=== PATIENT | female | born 1960 | race Caucasian/White ===

== ENCOUNTER → 2018-03-20 | Outpatient (CLI) | payer BC ==
--- NOTE | 2018-03-21 09:35 | MM ---
Reason for exam: screening (asymptomatic). Last mammogram was performed 1 year and 8 months ago. History: Patient is postmenopausal. Family history of breast cancer in 2 maternal aunts and breast cancer in maternal cousin at age 58. Benign US left guided VAD of the left breast, April 27, 2011. Physical Findings: A clinical breast exam by your physician is recommended on an annual basis and results should be correlated with mammographic findings. MG Screening Mammo w CAD Bilateral CC and MLO view(s) were taken. Prior study comparison: July 12, 2016, bilateral MG screening mammo w CAD. April 17, 2011, CAD bilateral diagnostic mammogram. There are scattered fibroglandular densities. Focal asymmetry inner lower left breast 7cm from nipple. This finding is changed when compared with previous exams. ASSESSMENT: Incomplete: need additional imaging evaluation, BI-RAD 0 RECOMMENDATION: Special view mammogram of the left breast. If lesion persists on supplemental views, image directed ultrasound is recommended. [facility] will attempt to contact patient to return for supplemental views and ultrasound if indicated.
== END | disposition home or self-care (01) ==
LOC: RADMAMWWP 07:06
PROVIDERS: ATTEND Family Medicine
DX: Z12.31 Encounter for screening mammogram for malignant neoplasm of breast (principal)
CPT/HCPCS: 77067

== ENCOUNTER → 2018-04-01 | Outpatient (CLI) | payer BC ==
--- NOTE | 2018-04-01 09:26 | MM ---
Reason for exam: additional evaluation requested from abnormal screening. Last mammogram was performed less than 1 month ago. History: Patient is postmenopausal. Family history of breast cancer in 2 maternal aunts and breast cancer in maternal cousin at age 58. Benign US left guided VAD of the left breast, April 27, 2011. Physical Findings: Nurse did not find any significant physical abnormalities on exam. MG Work Up Mamm w CAD LT CC and MLO view(s) were taken of the left breast. Prior study comparison: March 20, 2018, bilateral MG screening mammo w CAD. July 12, 2016, bilateral MG screening mammo w CAD. There is a persistent new 6mm mass lower inner quadrant left breast at middle depth. These results were verbally communicated with the patient and result sheet given to the patient on 04/01/18. ASSESSMENT: Incomplete: need additional imaging evaluation, BI-RAD 0 RECOMMENDATION: Ultrasound of the left breast. (lower inner quadrant)
--- NOTE | 2018-04-01 09:30 | USB ---
Reason for exam: additional evaluation requested from abnormal screening. History: Patient is postmenopausal. Family history of breast cancer in 2 maternal aunts and breast cancer in maternal cousin at age 58. Benign US left guided VAD of the left breast, April 27, 2011. US Breast Workup Limited LT Left limited breast ultrasound including focal area of concern, retroareolar and axilla demonstrates a 6 x 3 x 4mm lesion at 8 o'clock that correlates with mammographic finding, hypoechoic, no increase through transmission, suspicious, 6.5cm from nipple and a 6 x 3 x 8mm oval, lipoma at 8 o'clock, benign appearing, 5.8cm from nipple. These results were verbally communicated with the patient and result sheet given to the patient on 04/01/18. ASSESSMENT: Suspicious, BI-RAD 4 RECOMMENDATION: Ultrasound core biopsy of the left breast. Called Dr. Barrios with mammographic findings and has scheduled an appointment for the patient for 04/15/18 at 10:[address] Tyler. Biopsy scheduled for 04/08/18 at 9:00. PRELIMINARY REPORT CALLED AND FAXED TO DR. TYLER ON 04/01/18.
== END | disposition home or self-care (01) ==
LOC: RADMAMWWP 06:54
PROVIDERS: ATTEND Family Medicine
DX: R92.8 Other abnormal and inconclusive findings on diagnostic imaging of breast (principal)
CPT/HCPCS: 77065

== ENCOUNTER → 2018-04-07 | Day surgery (SDC) | payer BC ==
[2018-04-07 13:38] VITALS: RESP 16; BMI 34.7
[2018-04-07 15:31] VITALS: BP 143/80; PULSE 66; TEMP 98.3
--- NOTE | 2018-04-07 16:42 | USB ---
EXAMINATION TYPE: US biopsy breast VAD LT, MG diagnostic mammo LT wo CAD DATE OF EXAM: 04/07/2018 CLINICAL HISTORY: 57-year-old female R92.8 ABN MAMMO. TECHNIQUE: Ultrasound guided core biopsy of the left breast. COMPARISON: 04/01/2018 FINDINGS: The procedure of ultrasound guided core biopsy was explained to the patient. Benefits, alt ernatives, and risks were discussed. An informed consent was then obtained. The patient was placed in supine positioning for imaging and for the procedure. The overlying skin w as prepped and draped in usual sterile fashion. Lidocaine buffered with bicarbonate was used as anes thetic into the skin and subcutaneous tissue up to area of concern in the 8:00 left breast. Under ultrasound guidance, a 13-gauge vacuum-assisted mammotome Elite biopsy gun was used to obtain 7 core samples. Following this, a ribbon clip was left in lesion. The patient tolerated the procedure well without any immediate complication. The patient was kept in the radiology department for short stay after the procedure and then discharged home in stable condi tion. Postprocedure mammogram shows the ribbon clip at the site of mammographic focal asymmetry 8 to 9:00 p osition. IMPRESSION: Successful, uncomplicated ultrasound guided core biopsy of the mixed lesion in the 8 to 9:00 position left breast which corresponds to the mammographic area of concern; full pathology results to follow.
== END ==
LOC: RADUSWWP 13:26
PROVIDERS: ATTEND Surgery
DX: N60.12 Diffuse cystic mastopathy of left breast (principal); N60.82 Other benign mammary dysplasias of left breast; N62 Hypertrophy of breast
CPT/HCPCS: 77065; 19083; A4648; J2001; 88305

== ENCOUNTER → 2018-06-30 | Outpatient (CLI) | payer BC ==
--- NOTE | 2018-06-30 12:17 | XR ---
EXAMINATION TYPE: XR chest 2V DATE OF EXAM: 06/30/2018 COMPARISON: 05/12/2010 HISTORY: Follow-up for cough. TECHNIQUE: Frontal and lateral views of the chest are obtained. FINDINGS: There is no focal air space opacity, pleural effusion, or pneumothorax seen. The cardiac silhouette size is within normal limits. Healed prior posterior right rib 8 fracture deformity is see n. Mild acromio clavicular arthropathy is noted bilaterally with minimal multilevel degenerative rosas ge of the thoracic spine. Cholecystectomy clips are noted within the right upper quadrant. IMPRESSION: No acute cardiopulmonary process.
== END | disposition home or self-care (01) ==
LOC: RADXRMAIN 10:59
PROVIDERS: ATTEND Family Medicine
DX: R05 Cough (principal)
CPT/HCPCS: 71046

== ENCOUNTER → 2018-12-18 | Outpatient (CLI) | payer BC ==
--- NOTE | 2018-12-18 15:36 | XR ---
EXAMINATION TYPE: XR shoulder complete LT DATE OF EXAM: 12/18/2018 COMPARISON: NONE HISTORY: Pain TECHNIQUE: Shoulder examined in 3 FINDINGS: The humeral head articulates with the glenoid. The acromio-clavicular junction is normal. No acute fractures or dislocations are evident. A follow up study can be performed 7-10 days from acute trauma for continued pain. IMPRESSION: 1. Normal Shoulder
== END | disposition home or self-care (01) ==
LOC: RADXRMAIN 15:19
PROVIDERS: ATTEND Family Medicine
DX: M25.512 Pain in left shoulder (principal)

== ENCOUNTER → 2019-07-08 | Outpatient (CLI) | payer BC ==
--- NOTE | 2019-07-08 09:39 | MM ---
Reason for exam: additional evaluation requested from prior study. Last mammogram was performed 1 year and 3 months ago. History: Patient is postmenopausal. Family history of breast cancer in 2 maternal aunts and breast cancer in maternal cousin at age 58. Benign US biopsy breast VAD LT of the left breast, April 07, 2018. Benign US left guided VAD of the left breast, April 27, 2011. Physical Findings: Nurse did not find any significant physical abnormalities on exam. MG Diagnostic Mammo w CAD ASHLEY Bilateral CC and MLO view(s) were taken. Prior study comparison: April 07, 2018, left breast MG diagnostic mammo LT wo CAD. April 01, 2018, left breast MG work up mamm w CAD LT. There are scattered fibroglandular densities. Previous mammotome biopsy in the left breast x 2. No significant new findings when compared with previous films. These results were verbally communicated with the patient and result sheet given to the patient on 07/08/19. ASSESSMENT: Benign, BI-RAD 2 RECOMMENDATION: Routine screening mammogram of both breasts in 1 year.
--- NOTE | 2019-07-08 09:40 | USB ---
Reason for exam: additional evaluation requested from prior study. History: Patient is postmenopausal. Family history of breast cancer in 2 maternal aunts and breast cancer in maternal cousin at age 58. Benign US biopsy breast VAD LT of the left breast, April 07, 2018. Benign US left guided VAD of the left breast, April 27, 2011. US Breast Limited LT Left limited breast ultrasound including focal area of concern, retroareolar and axilla demonstrates a 0.5 x 0.6 x 0.3cm questionable lipoma at 8 o'clock and a clip at 8 o'clock. These results were verbally communicated with the patient and result sheet given to the patient on 07/08/19. ASSESSMENT: Benign, BI-RAD 2 RECOMMENDATION: Routine screening mammogram of both breasts in 1 year.
== END | disposition home or self-care (01) ==
LOC: RADMAMWWP 08:44
PROVIDERS: ATTEND Family Medicine
DX: R92.8 Other abnormal and inconclusive findings on diagnostic imaging of breast (principal); R92.0 Mammographic microcalcification found on diagnostic imaging of breast
CPT/HCPCS: 77066

== ENCOUNTER → 2019-09-11 | Outpatient (CLI) | payer BC | END | disposition home or self-care (01) | LOC: LABWHC1 07:54 | PROVIDERS: ATTEND Family Medicine | DX: E55.9 Vitamin D deficiency, unspecified (principal) | CPT/HCPCS: 36415; 82306 ==

== ENCOUNTER → 2019-09-11 | Outpatient (CLI) | payer BC ==
[2019-09-11 09:03] LABS: HCT 45.8 % (34.0-46.0); HGB 14.7 gm/dL (11.4-16.0); MCH 30.4 pg (25.0-35.0); MCHC 32.2 g/dL (31.0-37.0); MCV 94.4 fL (80.0-100.0); Mean Platelet Volume 6.2; Platelet Count 477 k/uL (150-450); RBC 4.85 m/uL (3.80-5.40); RDW 12.8 % (11.5-15.5); WBC 6.7 k/uL (3.8-10.6)
[2019-09-11 09:13] LABS: Albumin 4.6 g/dL (3.5-5.0); Calcium 10.3 mg/dL (8.4-10.2); Potassium 4.7 mmol/L (3.5-5.1); Total Bilirubin 1.4 mg/dL (0.2-1.3); Total Protein 7.6 g/dL (6.3-8.2)
[2019-09-11 09:14] LABS: Appearance,Urine Clear (Clear); Bilirubin,Urine Negative (Negative); Blood,Urine Negative (Negative); Color,Urine Light Yellow; Glucose,Urine (UA) Negative (Negative); Ketones,Urine Negative (Negative); Leukocyte Esterase,Urine Negative (Negative); Nitrite,Urine Negative (Negative); Protein,Urine Negative (Negative); Specific Gravity,Urine 1.017 (1.001-1.035); Urobilinogen,Urine <2.0 mg/dL (<2.0)
[2019-09-11 09:15] LABS: INR 0.9 (<1.2); Partial Thromboplastin Time 23.6 sec (22.0-30.0); Prothrombin Time 9.8 sec (9.0-12.0)
== END | disposition home or self-care (01) ==
LOC: LABPAT 07:52
PROVIDERS: ATTEND Orthopaedic Surgery Sports Medicine
DX: Z01.812 Encounter for preprocedural laboratory examination (principal)
CPT/HCPCS: 36415; 80053; 81003; 85027; 85610; 85730; 87070

== ENCOUNTER 2019-09-23 12:26 | Observation (INO) | payer BC ==
[2019-09-16 15:30] VITALS: BMI 34.7
[~2019-09-23 12:26] MED LIST: ACETAMINOPHEN TAB 500 MG TAB PO ONE; GABAPENTIN 300 MG CAP PO ONE; LACTATED RINGERS 1,000 ML IV SCH; LIDOCAINE 1% 20 ML VIAL (10MG/ML) FOR IV START INTRADERMA PRN; MELOXICAM 7.5 MG TAB PO ONE; ONDANSETRON 4 MG/2 ML VIAL IVP ONE; ROPIVACAINE 246.25 MG, EPINEPHrine 0.5 MG, KETOROLAC 30 MG, cloNIDine HCL/PF 80 MCG, WA... MISCELLANE ONE; TRANEXAMIC ACID 1,000 MG in SODIUM CHLORIDE 0.9% 100 ML IVPB ONE; fentaNYL (PF) 50 MCG/ML 2 ML AMP IV PRN
[2019-09-23] MEDS ORDERED: TEMAZEPAM 15 MG CAP PO PRN (14:34)
[2019-09-23] MEDS ORDERED: BISACODYL 10 MG SUPP RECTAL PRN (14:34)
[2019-09-23] MEDS ORDERED: MORPHINE SULFATE 2 MG/ML SYRINGE IVP PRN ×2 (14:34)
[2019-09-23] MEDS ORDERED: NALOXONE 0.4 MG/ML 1 ML VIAL IV PRN ×2 (14:34→15:08)
[2019-09-23] MEDS ORDERED: MORPHINE SULFATE 4 MG/ML SYRINGE IV PRN (14:34)
[2019-09-23] MEDS ORDERED: ONDANSETRON 4 MG/2 ML VIAL IVP PRN (14:34)
[2019-09-23] MEDS ORDERED: hydrOXYzine PAMOATE 25 MG CAP PO PRN (14:34)
[2019-09-23] MEDS ORDERED: DIAZEPAM 5 MG TAB PO PRN (14:34)
[2019-09-23] MEDS ORDERED: NA PHOS,M-B/NA PHOS,DI-BA 133 ML ENEMA RECTAL PRN (14:34)
[2019-09-23] MEDS ORDERED: traMADol 50 MG TAB PO PRN (14:34)
[2019-09-23] MEDS ORDERED: MAGNESIUM HYDROXIDE 2,400 MG/10 ML CUP PO PRN (14:34)
[2019-09-23] MEDS ORDERED: HYDROcodone/APAP 5-325MG 1 EACH TAB PO PRN (14:34)
[2019-09-23] MEDS ORDERED: ACETAMINOPHEN TAB 325 MG TAB PO PRN (14:34)
[2019-09-23] MEDS ORDERED: KETAMINE 10 MG/ML 20 ML VIAL ONE (14:38)
[2019-09-23] MEDS ORDERED: fentaNYL (PF) 50 MCG/ML 2 ML AMP ONE (14:38)
[2019-09-23] MEDS ORDERED: SODIUM CHLORIDE 0.9% 100 ML BAG ONE (14:38)
[2019-09-23] MEDS ORDERED: TRANEXAMIC ACID 1,000 MG/10 ML VIAL ONE (14:38)
[2019-09-23] MEDS ORDERED: PROPOFOL 10 MG/ML 20 ML VIAL IV ONE (14:38)
[2019-09-23] MEDS ORDERED: MORPHINE SULFATE (PF) 0.3 MG/0.3 ML SYR ONE (14:38)
[2019-09-23] MEDS ORDERED: MIDAZOLAM 2 MG/2 ML VIAL ONE (14:38)
[2019-09-23] MEDS ORDERED: MORPHINE SULFATE 4 MG/ML SYRINGE IVP PRN (15:08)
[2019-09-23] MEDS ORDERED: ceFAZolin 3,000 MG in SODIUM CHLORIDE 0.9% IRRIGATIO 3,000 ML IRRIGATION ONE (15:09)
[2019-09-23] MEDS ORDERED: LACTATED RINGERS 1,000 ML IV ONE ×2 (15:52)
--- NOTE | 2019-09-23 16:52 | XR ---
EXAMINATION TYPE: XR knee limited LT DATE OF EXAM: 09/23/2019 CLINICAL HISTORY: Postoperative evaluation Two views of the left knee are submitted. Identified are changes of total knee arthroplasty with fem oral and tibial components appearing well seated. Postsurgical soft tissue changes are noted. Align ment is anatomic.
[2019-09-23] MEDS: LACTATED RINGERS 1,000 ML IV SCH (18:07)
[2019-09-23] MEDS: SENNOSIDES-DOCUSATE SODIUM 1 EACH TAB PO SCH (19:38)
[2019-09-23] MEDS: ASPIRIN 325 MG TAB PO SCH (19:38)
--- NOTE | 2019-09-23 20:53 | P.CONS ---
History of Present Illness - Reason for Consult Consult date: 09/23/19 Medical management Requesting physician: Ashok Weiss - Chief Complaint Left knee surgery - History of Present Illness Consultation: This is a pleasant [address] Sharri Barrios. Chronic stable medical conditions include GERD, hypertension, osteoarthritis in the shoulders to her back. Patient is undergone left total knee arthroplasty. Some pain is present. Postoperative no nausea vomiting. No chest, short of breath. She did tolerate a light meal this evening. Laying in bed. Comfortable. Denies any cardiac history Review of systems: GEN.: None EYES: None HEENT: None NECK: None RESPIRATORY: None CARDIOVASCULAR: None GASTROINTESTINAL: GERD GENITOURINARY: None MUSCULOSKELETAL: As above LYMPHATICS: None HEMATOLOGICAL: None PSYCHIATRY: None NEUROLOGICAL: None Past medical history to include: Primary osteoarthritis, hypertension, GERD, [place] arthritis includes in the knees or back shoulders Social history: Daughter lives with her. Alcohol rarely. No smoking. Physical examination: VITAL SIGNS: 98.1, 80, 18, 110/68, 92% room air GENERAL: BMI -33.1, laying in bed awake. EYES: Pupils equal. Conjunctiva normal. HEENT: External appearance of nose and ears normal, oral cavity grossly normal. NECK: JVD not raised; masses not palpable. HEART: First and second heart sounds are normal; no edema. LUNGS: Respiratory rate normal; clear to auscultation. ABDOMEN: Soft, nontender, liver spleen not palpable, no masses palpable. PSYCH: Alert and oriented x3; mood and affect normal. NEUROLOGICAL: Cranial nerves grossly intact; no facial asymmetry, power and sensation grossly intact. LYMPHATICS: No lymph nodes palpable in the axilla and neck MUSCULOSKELETAL: Dressing over the left knee INVESTIGATIONS, reviewed in the clinical context: Labs from 09/11/2019 White count 6.7 hemoglobin 14.7 potassium 4.7 creatinine 0.88 Assessment: -Left total knee arthroplasty -Primary osteoarthritis -Essential hypertension -GERD -Obesity BMI 33.1 Plan: Home medications resumed. Pain control in place. Patient is on aspirin 325 twice a day for DvT prophylaxis per surgery. Care was discussed with the patient. Question were answered. Thank you Dr. Weiss Past Medical History Past Medical History: GERD/Reflux, Hypertension, Osteoarthritis (OA) Additional Past Medical History / Comment(s): hx. pancreatitis History of Any Multi-Drug Resistant Organisms: None Reported Past Surgical History: Cholecystectomy, Tonsillectomy, Tubal Ligation Additional Past Surgical History / Comment(s): carpal tunnel left hand Past Anesthesia/Blood Transfusion Reactions: No Reported Reaction Additional Past Anesthesia/Blood Transfusion Reaction / Comm: " TAKES NO LONGER WAKING UP" Past Psychological History: No Psychological Hx Reported Smoking Status: Never smoker Past Alcohol Use History: Rare Past Drug Use History: None Reported - Past Family History Mother Family Medical History: AFIB, Cancer, COPD, Diabetes Mellitus, Respiratory Disorder Additional Family Medical History / Comment(s): SKIN CANCER Sister(s) Family Medical History: Cancer Additional Family Medical History / Comment(s): BREAST CANCER Father Family Medical History: Cancer Additional Family Medical History / Comment(s): SKIN CANCER Medications and Allergies Home Medications Medication Instructions Recorded Confirmed Type Ergocalciferol (Vitamin D2) 1 tab PO KEMP 04/03/18 09/23/19 History [Vitamin D2] Hydrochlorothiazide 25 mg PO DAILY 04/03/18 09/23/19 History Meloxicam 15 mg PO DAILY 09/16/19 09/23/19 History Atorvastatin [Lipitor] 10 mg PO HS 09/17/19 09/23/19 History Famotidine [Pepcid] 20 mg PO BID 09/17/19 09/23/19 History Allergies Allergy/AdvReac Type Severity Reaction Status Date / Time hydromorphone [From Dilaudid] Allergy Hallucinati Verified 09/16/19 14:57 ons Physical Exam Vitals: Vital Signs Temp Pulse Pulse Resp BP BP Pulse Ox 09/23/19 19:27 98.1 F 80 18 110/68 92 L 09/23/19 18:15 87 119/56 09/23/19 18:09 18 09/23/19 18:00 87 116/76 09/23/19 17:45 83 105/56 09/23/19 17:30 98.4 F 79 18 110/68 93 L 09/23/19 17:00 81 16 112/57 91 L 09/23/19 16:44 82 16 123/58 93 L 09/23/19 16:28 97.8 F 94 17 132/58 94 L 09/23/19 12:46 98.2 F 99 16 141/63 97 Intake and Output 11/06/19 11/06/19 11/06/19 06:59 14:59 22:59 Intake Total 1450 301 Output Total 100 Balance 1450 201 Intake: IV 1450 301 Output: Estimated Blood Loss 100 Other: Weight 82 kg
[2019-09-23] MEDS: FAMOTIDINE 20 MG TAB PO SCH (22:09)
[2019-09-23] MEDS: ATORVASTATIN 10 MG TAB PO SCH (22:09)
--- NOTE | 2019-09-23 22:34 | OP ---
OPERATIVE REPORT DATE OF PROCEDURE: 09/23/2019. SURGEON: Ashok Weiss MD ASSISTANT DEAN OF STUDENTS: Gavin MENDEZ PREOPERATIVE DIAGNOSIS: Left knee osteoarthrosis. POSTOPERATIVE DIAGNOSIS: Left knee osteoarthrosis. OPERATION: Left total knee arthroplasty. ANESTHESIA: Spinal with sedation. ESTIMATED BLOOD LOSS: 100 mL. TOURNIQUET: Tourniquet time was 47 minutes at 250 mmHg. COMPLICATIONS: None apparent. DRAINS: None. DISPOSITION: Post-Anesthesia Care Unit. INDICATIONS: Qian is a very pleasant 59-year-old female with longstanding history of left knee pain. History and physical examination were consistent with advanced left knee osteoarthrosis. She has been through significant nonoperative management up to this point. Further treatment options were discussed, and she decided to go forward with left total knee arthroplasty. The risks of the procedure were discussed with her in detail. These risks include but are not limited to risk of infection, nerve damage, bleeding, pain, and a small risk of deep vein thrombosis which could lead to fatal pulmonary embolism. There is also a risk of loosening of the implant which could require revision operation. The patient understands these risks. All of her questions were answered to her satisfaction. Appropriate informed consent was obtained. DESCRIPTION OF THE PROCEDURE: The patient was identified in the preoperative holding area. Surgical site was marked by both the patient and myself. She was given 2 grams of Ancef IV for prophylactic purposes. She was then transferred to the operative suite. She was placed supine on the operating room table. Spinal anesthetic was then administered and dosed per the anesthesia department without apparent complication. Examination under anesthesia was then performed. The patient was 2 to 3 degrees shy of full extension. She had 100 degrees of flexion, and the medial collateral ligament, lateral collateral ligament and posterior cruciate ligaments were stable. Tourniquet was then placed high on the left upper thigh, well padded in preparation for surgery. The patient's left lower extremity was then prepped and draped in the usual sterile fashion. A standard surgical pause was undertaken to ensure that we were operating on the correct site and that appropriate preoperative antibiotics had been given. All staff in the room were in agreement and we proceeded. The outlines of the patella were marked with a surgical pen. A planned 12 cm vertical incision centered over the patella was marked with the surgical pen. The leg was then exsanguinated with an Esmarch dressing. The knee was then flexed and the tourniquet was inflated to 250 mmHg. The total tourniquet time for the procedure was 47 minutes. Incision was then made with a 10-blade scalpel. Dissection was carried down sharply to the overlying fascia. Great care was taken to minimize the skin flaps. The knee was then exposed using a standard medial parapatellar approach. A small cuff of quadriceps tendon was then left for suturing. She was in a bit of varus preoperatively. A standard medial release was then made. The superficial medial collateral ligament was dissected off the bone around to the posterior aspect of the proximal tibia. The medial meniscus was then excised as well. The lateral meniscus was also released anteriorly. The leg was then externally rotated. The patella was everted. The knee was flexed. The retractors were then placed to protect the collateral ligaments. I then proceeded to remove the infrapatellar fat pad. This was excised sharply tangentially with the fibers of the patellar tendon. I then proceeded to remove peripheral osteophytes. This was done with a rongeur. I then proceeded with distal femoral resection. She did have near-full extension. A planned 9 mm resection was then done. The femoral canal was then entered in the midline of the femur approximately 10 mm anterior to the origin of the posterior cruciate ligament. The dennis was then advanced down the center of the femur and placed intramedullary. Based on the preoperative radiographs, the angle between the anatomic and mechanical axes of the femur was approximately 4 to 5 degrees. The valgus angle of the distal femoral cutting guide was then set at 4 degrees for the left knee. The distal femoral cutting guide was then advanced over the intramedullary dennis. This was seated firmly against the femur. I then, as mentioned, planned to take 9 mm off the distal femur. Cutting block was then secured onto the femur with pins. The jig was then removed and the distal femoral cut was made through the slot of the block. The pins were then removed and the distal femoral cutting block was removed. The accuracy of the distal femoral cuts was checked with 2 flat bars. I then proceeded with femoral sizing. The posterior referencing sizing guide was held firmly against the resected distal surface of the femur. The posterior condyles were resting on the posterior plane of the guide. The sizing stylus was then placed onto the anterior femur. The size was measured as a size 6. I then assessed for femoral rotation. The plan was for 3 degrees of external rotation. Three degrees of external rotation was placed onto the jig. These holes were then marked. I then confirmed the rotation by 3 separate methods. This was done using the epicondylar axis as well as Whitesides line and posterior referencing. It was deemed that the external rotation was proper. I then went forward with placing the femoral cutting block. This was placed over the previously placed pin holes. The Albaro wing was then placed onto the anterior slots to ensure that we would not notch the anterior femur with the anterior femoral cut. I then proceeded with the anterior femoral cut. This was flush with the anterior cortex of the femur. The posterior cuts were then made followed by the anterior chamfer cut and then the posterior chamfer cut. The cutting block was then removed. Throughout the resection, the collateral ligaments were protected with retractors. I then placed a trial size 6 femur. It was slightly wide medial to lateral, but the narrow fit nicely and fit flush with the distal end of the femur. The drill holes were then made. I then proceeded with the tibial cut. I planned for a cruciate-retaining knee. The guide was placed and set for varus, valgus and for slope. The height was set for an approximate 2 mm resection from the medial tibial plateau, which was the lower side. I was happy with the alignment and the amount of resection. The cutting block was then pinned to the proximal tibia. The alignment dennis was removed and the proximal tibia was resected with a reciprocating saw. Again this was done with retractors protecting the collateral ligaments as well as the posterior cruciate ligament. I then proceeded to evaluate the flexion and extension gaps. A 10 mm block was then placed. The flexion and extension gaps were equal. I then proceeded with resection of the posterior osteophytes. She had very minimal posterior osteophytes. This was done using a curved osteotome. This resected the posterior osteophytes, and posterior capsule stripping was done off the posterior aspect of the femur. The osteophytes were then removed. I then proceeded with resection of the patella. The thickness of the patella was measured using a caliper. The thickness was 22 mm. The thickness of the anticipated patellar dome was taken into account. Resection was then performed and confirmed to be equal in 4 quadrants using a caliper. Approximately 14 mm of bone remained after the resection. A 29 x 8.5 standard patellar trial was then placed. The holes were drilled and the trial was then placed. I then proceeded with sizing of the tibial plate. A size C tibial plate fit very nicely. I then placed the trial femur and the tibial tray and the patellar button. A 10 mm trial tibial insert was also placed. The components fit very nicely. She had full extension and flexion. The extension and flexion gaps were equal and stable to both varus and valgus stress. The patella tracked appropriately. The tibial tray rotation was marked with a Bovie. This was externally rotated properly. I then proceeded with tibial preparation. I first drilled the femoral holes and removed the femoral component. The tibial tray was then set for proper external rotation as well as mediolateral placement onto the tibia. It was then pinned into place. I then proceeded with punching the keel. I then decided to proceed with cementing of all of our components. The knee was thoroughly irrigated with sterile saline solution via pulse lavage. The lateral geniculate artery was identified and cauterized. All blood was removed from the bone of the tibia, femur and patella with pulse lavage. I then proceeded with cementing. Two packs of antibiotic bone cement were prepared on the back table by the surgical assistant certified. I then proceeded with cementing of the tibia first. Cement was impacted into the keel as well as deeply seated into the bone. A second coat of cement was then placed. The tibia was then impacted into place. Excess cement was removed with Su's and Joker's. I then proceeded with cementing of the femoral component. The femoral component was also cemented using standard technique. Excess cement was removed. A 10 mm trial insert was then placed into the knee. It was brought into full extension with a constant axial load placed until the cement had hardened. The patellar component was then cemented. This was held firmly with a compressive device until the cement had dried. When the cement had dried, the knee was taken out of extension. All excess cement was removed from around the prosthesis. I then trialed the knee with a 10 mm insert. The flexion and extension gaps were appropriate. The knee was stable. It came into full extension. It was decided to go forward with a 10 mm cross-linked cruciate-retaining tibial insert. Polyethylene was then placed onto the tibial tray and locked into place. The knee was then reduced. The knee was again further irrigated with sterile saline solution with antibiotic added. The tourniquet was then deflated. The total tourniquet time for the procedure was 47 minutes at 250 mmHg. Final components were a Emiliano Persona size 6 narrow cruciate-retaining femoral component, a size C tibial tray, a 10 mm medial- congruent cruciate-retaining polyethylene insert and a 29 x 8.5 mm patella. I then proceeded with closure. Again the knee was thoroughly irrigated. The quadriceps tendon and the medial retinaculum were reapproximated with a #2 Ethibond suture. The extensor mechanism was then closed with a running #2 Quill suture. Subcutaneous tissues were then closed with 2-0 Vicryl interrupted suture. The skin was closed with a running 3-0 Quill suture. Dermabond was applied to the incision. Sterile compressive dressings were then applied. All sponge and needle counts were deemed correct prior to closure. The patient tolerated the procedure without apparent complication. She was transferred to the recovery room in stable condition. MMBRYON / RABIAN: [id number] /
[2019-09-24] MEDS: LACTATED RINGERS 1,000 ML IV SCH ×2 (05:20→16:16)
[2019-09-24 06:55] LABS: Basophils % (A) 0 %; Eosinophils # (A) 0.1 k/uL (0-0.7); Eosinophils % (A) 0 %; HGB 12.5 gm/dL (11.4-16.0); Lymphocytes # (A) 1.5 k/uL (1.0-4.8); Lymphocytes % (A) 8 %; MCH 31.1 pg (25.0-35.0); MCHC 32.9 g/dL (31.0-37.0); MCV 94.5 fL (80.0-100.0); Mean Platelet Volume 5.6; Monocytes # (A) 0.7 k/uL (0-1.0); Monocytes % (A) 4 %; Neutrophils # (A) 15.6 k/uL (1.3-7.7); Neutrophils % (A) 86 %; Platelet Count 412 k/uL (150-450); RBC 4.02 m/uL (3.80-5.40); RDW 12.8 % (11.5-15.5); WBC 18.1 k/uL (3.8-10.6)
--- NOTE | 2019-09-24 07:07 | P.PN ---
Progress Note - Text Progress Note Date: 09/24/19 Patient was given intrathecal Duramorph on 09/23/2019 for left total knee re placement. This morning, vital signs are stable. The patient denies itching, nausea, vomiting, urinary retention, excessive sedation, respiratory depression, or headache. Patient also denies new-onset fever, weakness, or bowel/bladder incontinence. Her pain score is: 0 Pain medications per primary service; please call back with any further questions. Pedrito Magaña MD
[2019-09-24] MEDS: FAMOTIDINE 20 MG TAB PO SCH ×2 (08:10→20:54)
[2019-09-24] MEDS: ASPIRIN 325 MG TAB PO SCH ×2 (08:10→20:54)
[2019-09-24] MEDS: HYDROCHLOROTHIAZIDE 25 MG TAB PO SCH (08:10)
--- NOTE | 2019-09-24 09:20 | P.DS ---
Providers Expected date of discharge: 09/24/19 Attending physician: Ashok Weiss Consults: 09/23/19 14:34 Consult Physician Routine Consulting Provider: Leighton Roca Consult Reason/Comments: post op medical management Do you want consulting provider notified?: Yes Primary care physician: Andi Barrios - Discharge Diagnosis(es) (1) Status post total left knee replacement Patient was admitted to the OR on 09/23/2019 to undergo a left total knee arthroplasty. She had failed conservative measures as an outpatient and desired to proceed with elective surgery after given informed consent. She underwent the above procedure which she tolerated well without complication. Postoperative hospital course has remained without complication. On day of discharge she is afebrile, vital signs stable, labs within acceptable ranges, tolerating by mouth meds and diet, voiding without difficulty, positive flatus, denies abdominal pain or calf pain, pain is controlled on oral pain medication and has no new complaints. Wound is benign, neurovascular status is intact, calf is soft and nontender, abdomen soft and nontender. Review of systems is negative for numbness, tingling, fever, chills, chest pain, shortness of breath, nausea, vomiting, dizziness, headaches, slurred speech or other. Current Visit: Yes Status: Acute Priority: Medium Procedures: Left TKA Patient Condition at Discharge: Good Plan - Discharge Summary Discharge Rx Participant: No New Discharge Prescriptions: New Aspirin 325 mg PO BID #60 tab Docusate [Colace] 100 mg PO BID #60 capsule HYDROcodone/APAP 7.5-325MG [Marissa 7.5-325] 1 - 2 each PO Q6HR PRN #56 tab PRN Reason: Pain No Action Hydrochlorothiazide 25 mg PO DAILY Ergocalciferol (Vitamin D2) [Vitamin D2] 1 tab PO KEMP Meloxicam 15 mg PO DAILY Famotidine [Pepcid] 20 mg PO BID Atorvastatin [Lipitor] 10 mg PO HS Discharge Medication List Ergocalciferol (Vitamin D2) [Vitamin D2] 1 tab PO KEMP 04/03/18 [History] Hydrochlorothiazide 25 mg PO DAILY 04/03/18 [History] Meloxicam 15 mg PO DAILY 09/16/19 [History] Atorvastatin [Lipitor] 10 mg PO HS 09/17/19 [History] Famotidine [Pepcid] 20 mg PO BID 09/17/19 [History] Aspirin 325 mg PO BID #60 tab 09/24/19 [Rx] Docusate [Colace] 100 mg PO BID #60 capsule 09/24/19 [Rx] HYDROcodone/APAP 7.5-325MG [Marissa 7.5-325] 1 - 2 each PO Q6HR PRN #56 tab 09/24/19 [Rx] Follow up Appointment(s)/Referral(s): Ashok Weiss MD [STAFF PHYSICIAN] - 10 Days Activity/Diet/Wound Care/Special Instructions: Keep wound clean and dry Take meds as directed Follow-up with Dr. Weiss in office Weight bear as tolerated May shower in 3 days if no bleeding Discharge Disposition: HOME WITH HOME HEALTH SERVICES
[2019-09-24] MEDS: HYDROcodone/APAP 10-325MG 1 EACH TAB PO PRN ×2 (12:58→19:02)
[2019-09-24] MEDS: SENNOSIDES-DOCUSATE SODIUM 1 EACH TAB PO SCH (20:54)
[2019-09-24] MEDS: MORPHINE SULFATE 4 MG/ML SYRINGE IV PRN (20:54)
[2019-09-24] MEDS: ATORVASTATIN 10 MG TAB PO SCH (20:54)
--- NOTE | 2019-09-24 23:02 | P.PN ---
Progress Note - Text Progress Note Date: 09/24/19 - Chief Complaint Left knee surgery interval history: This is a pleasant [address] Sharri Barrios. Chronic stable medical conditions include GERD, hypertension, osteoarthritis in the shoulders to her back. Patient is undergone left total knee arthroplasty. Some pain is present. Postoperative no nausea vomiting. No chest, short of breath. She did tolerate a light meal this evening. Laying in bed. Comfortable. Denies any cardiac history today-some pain in the left knee. Did walk with therapy. No nausea vomiting. Did have a breakfast. No dizziness or lightheadedness. Review of systems: Was done for constitutional, cardiovascular, GI, pulmonary. musculoskeletal,relevant finding as above Active Medications Acetaminophen (Tylenol Tab) 650 mg PO Q4HR PRN PRN Reason: Pain Scale 1 to 5 Hydrocodone Bitart/Acetaminophen (Eidson 5-325) 1 each PO Q6HR PRN PRN Reason: Pain Scale 1 to 5 Last Admin: 09/24/19 09:47 Dose: 1 each Documented by: Hydrocodone Bitart/Acetaminophen (Eidson 10) 1 each PO Q6H PRN PRN Reason: Pain Scale 6 to 10 Last Admin: 09/24/19 19:02 Dose: 1 each Documented by: Aspirin (Aspirin) 325 mg PO BID [facility] Last Admin: 09/24/19 20:54 Dose: 325 mg Documented by: Atorvastatin Calcium (Lipitor) 10 mg PO HS [facility] Last Admin: 09/24/19 20:54 Dose: 10 mg Documented by: Bisacodyl (Dulcolax) 10 mg RECTAL DAILY PRN PRN Reason: Constipation Diazepam (Valium) 2.5 mg PO Q8HR PRN PRN Reason: Mild Spasms Famotidine (Pepcid) 20 mg PO BID [facility] Last Admin: 09/24/19 20:54 Dose: 20 mg Documented by: Hydrochlorothiazide (Hydrodiuril) 25 mg PO DAILY [facility] Last Admin: 09/24/19 08:10 Dose: 25 mg Documented by: Hydroxyzine Pamoate (Vistaril) 25 mg PO Q4HR PRN PRN Reason: Nausea, Anxiety, Pain Control Lactated Ringer's (Lactated Ringers) 1,000 mls @ 75 mls/hr IV .[id number] [facility] Last Admin: 09/24/19 16:16 Dose: Not Given Documented by: Lidocaine HCl (.Xylocaine 1% Inj (10mg/Ml) For Iv Start) 0.1 ml INTRADERMA PER PROTOCOL PRN PRN Reason: IV Start Last Admin: 09/23/19 12:48 Dose: 0.1 ml Documented by: Magnesium Hydroxide (Milk Of Magnesia) 2,400 mg PO DAILY PRN PRN Reason: Constipation Morphine Sulfate (Morphine Sulfate (Inj)) 1 mg IVP Q3HR PRN PRN Reason: Pain Scale 1 to 3 Morphine Sulfate (Morphine Sulfate (Inj)) 2 mg IVP Q3HR PRN PRN Reason: Pain Scale 4 to 5 Morphine Sulfate (Morphine Sulfate (Inj)) 3 mg IV Q3HR PRN PRN Reason: Pain Scale 6 to 7 Morphine Sulfate (Morphine Sulfate (Inj)) 4 mg IV Q3HR PRN PRN Reason: Pain Scale 7 to 10 Last Admin: 09/24/19 20:54 Dose: 4 mg Documented by: Multivitamins (Theragran) 1 each PO DAILY@1200 SHANTAL Naloxone HCl (Narcan) 0.2 mg IV Q2M PRN PRN Reason: Opioid Reversal Ondansetron HCl (Zofran) 4 mg IVP Q8HR PRN PRN Reason: Nausea And Vomiting Senna/Docusate Sodium (Senokot-S) 2 each PO HS SHANTAL Last Admin: 09/24/19 20:54 Dose: 2 each Documented by: Sodium Biphosphate/Sodium Phosphate (Fleet Adult) 133 ml RECTAL DAILY PRN PRN Reason: Constipation Temazepam (Restoril) 15 mg PO HS PRN PRN Reason: Insomnia Tramadol HCl (Ultram) 50 mg PO Q6HR PRN PRN Reason: Pain Scale 1 to 5 Last Admin: 09/24/19 17:23 Dose: 50 mg Documented by: Physical examination: VITAL SIGNS: 97.5, 80, 16, 11 3/77, GENERAL: sitting up in bed, comfortable EYES: Pupils equal. Conjunctiva normal. HEENT: External appearance of nose and ears normal, oral cavity grossly normal. NECK: JVD not raised; masses not palpable. HEART: First and second heart sounds are normal; no edema. LUNGS: Respiratory rate normal; clear to auscultation. ABDOMEN: Soft, nontender, liver spleen not palpable, no masses palpable. PSYCH: Alert and oriented x3; mood and affect normal. MUSCULOSKELETAL: Dressing over the left knee INVESTIGATIONS, reviewed in the clinical context: White count 18.1 hemoglobin 12.5 Labs from 09/11/2019 White count 6.7 hemoglobin 14.7 potassium 4.7 creatinine 0.88 Assessment: -Left total knee arthroplasty -Primary osteoarthritis -Essential hypertension -GERD -Obesity BMI 33.1 -Leukocytosis likely reactive. No clinical evidence of infection. Plan: stable. Doing well. Continue current medications. Thank you Dr. Weiss
[2019-09-25] MEDS: HYDROcodone/APAP 10-325MG 1 EACH TAB PO PRN ×2 (00:14→11:41)
[2019-09-25] MEDS: LACTATED RINGERS 1,000 ML IV SCH (01:26)
[2019-09-25] MEDS: MORPHINE SULFATE 4 MG/ML SYRINGE IV PRN (06:06)
[2019-09-25] MEDS: FAMOTIDINE 20 MG TAB PO SCH (07:28)
[2019-09-25] MEDS: HYDROCHLOROTHIAZIDE 25 MG TAB PO SCH (07:28)
[2019-09-25] MEDS: ASPIRIN 325 MG TAB PO SCH (07:28)
[2019-09-25 07:57] VITALS: BP 110/56; PULSE 77; RESP 16; TEMP 98.8
[2019-09-25] MEDS ORDERED: MULTIVITAMINS, THERA 1 EACH TAB PO SCH (12:00)
--- NOTE | 2019-09-25 18:32 | P.PN ---
Progress Note - Text Progress Note Date: 09/25/19 - Chief Complaint Left knee surgery interval history: This is a pleasant [address] Sharri Barrios. Chronic stable medical conditions include GERD, hypertension, osteoarthritis in the shoulders to her back. Patient is undergone left total knee arthroplasty. Some pain is present. Postoperative no nausea vomiting. No chest, short of breath. She did tolerate a light meal this evening. Laying in bed. Comfortable. Denies any cardiac history today-feeling better. Some pain in the operative knee. Did tolerate her diet. Did work with therapy. Review of systems: Was done for constitutional, cardiovascular, GI, pulmonary. musculoskeletal,relevant finding as above Current medications reviewed in today's electronic records Physical examination: VITAL SIGNS: 98.8, 77, 16, 110/56, 95% room air GENERAL: Laying in bed,, comfortable EYES: Pupils equal. Conjunctiva normal. HEENT: External appearance of nose and ears normal, oral cavity grossly normal. NECK: JVD not raised; masses not palpable. HEART: First and second heart sounds are normal; no edema. LUNGS: Respiratory rate normal; clear to auscultation. ABDOMEN: Soft, nontender, liver spleen not palpable, no masses palpable. PSYCH: Alert and oriented x3; mood and affect normal. MUSCULOSKELETAL: Dressing over the left knee INVESTIGATIONS, reviewed in the clinical context: White count 18.1 hemoglobin 12.5 Labs from 09/11/2019 White count 6.7 hemoglobin 14.7 potassium 4.7 creatinine 0.88 Assessment: -Left total knee arthroplasty -Primary osteoarthritis -Essential hypertension -GERD -Obesity BMI 33.1 -Leukocytosis likely reactive. No clinical evidence of infection. Plan: Patient doing well. Discharge should follow the family doctor shortly. care was discussed with the patient. Thank you Dr. Weiss
== END 2019-09-25 19:53 | disposition home or self-care (01) ==
LOC: OR 12:26 → 4SSUR 17:03 → OR 09-25 12:52
PROVIDERS: ADMIT Orthopaedic Surgery Sports Medicine; ATTEND Orthopaedic Surgery Sports Medicine
DX: M17.0 Bilateral primary osteoarthritis of knee (principal); M25.762 Osteophyte, left knee; I10 Essential (primary) hypertension; K21.9 Gastro-esophageal reflux disease without esophagitis; E78.5 Hyperlipidemia, unspecified; D72.829 Elevated white blood cell count, unspecified; M47.9 Spondylosis, unspecified; M19.012 Primary osteoarthritis, left shoulder; M19.011 Primary osteoarthritis, right shoulder; E66.9 Obesity, unspecified; Z68.33 Body mass index [BMI] 33.0-33.9, adult; Z79.1 Long term (current) use of non-steroidal anti-inflammatories (NSAID); Z79.899 Other long term (current) drug therapy; Z88.5 Allergy status to narcotic agent; Z87.19 Personal history of other diseases of the digestive system; Z98.51 Tubal ligation status; Z90.49 Acquired absence of other specified parts of digestive tract; Z83.3 Family history of diabetes mellitus; Z82.49 Family history of ischemic heart disease and other diseases of the circulatory system; Z84.89 Family history of other specified conditions
CPT/HCPCS: 27447; 97116 ×2; 97161; 85025; 88300; 73560; G0378; C1776; C1713; J2250; J0171; J2270 ×2; J0690 ×2; J2405; J2274; J3010; J1885; J2795; J2704; J0735

== ENCOUNTER → 2021-12-07 | Outpatient (CLI) | payer BC | END | disposition home or self-care (01) | LOC: LABWHC1 11:50 | PROVIDERS: ATTEND Family Medicine | DX: U07.1 COVID-19 (principal) | CPT/HCPCS: 87081; 87430; U0003; C9803; U0005 ==

== ENCOUNTER → 2024-03-17 | Outpatient (CLI) | payer BC | LOC: CPPFTMAIN 08:06 | PROVIDERS: ATTEND Family Medicine | DX: R05.3 Chronic cough (principal); Z88.5 Allergy status to narcotic agent | CPT/HCPCS: 94060; 94726; 94729 ==

== ENCOUNTER → 2024-06-11 | Outpatient (CLI) | payer MEDICARE ==
--- NOTE | 2024-06-11 11:54 | BD ---
EXAMINATION TYPE: Axial Bone Density DATE OF EXAM: 06/11/2024 CLINICAL HISTORY: 64 years old Female. ICD-10 CODE: Z78.0 MENOPAUSAL Height: 62.5 Weight: 187 FRAX RISK QUESTIONS: Family History (Parent hip fracture): no History of Fracture in Adulthood: no Secondary Osteoporosis: yes 3. Menopause before 45: yes RISK FACTORS HISTORY OF: Surgery to Spine/Hip(right/left)/Wrist (right/left): no MEDICATIONS: Thyroid Medications: no Osteoporosis Medications: no EXAM MEASUREMENTS: Bone mineral densitometry was performed using the [employer]. Bone mineral density as measured about the Lumbar spine is: ----- L1-L4(G/cm2): 1.034 T Score Values are as follows: ----- L1: -2.1 ----- L2: -1.7 ----- L3: -0.3 ----- L4: -1.0 ----- L1-L4: -1.2 Z Score Values are as follows: ----- L1: -1.1 ----- L2: -0.8 ----- L3: 0.6 ----- L4: -0.1 ----- L1-L4: -0.3 Bone mineral density baseline Bone mineral density about the R hip (g/cm2): 0.807 Bone mineral density about the L hip (g/cm2): 0.847 T Score values are as follows: -----R Neck: -2.4 -----L Neck: -2.1 -----R Total: -1.6 -----L Total: -1.3 Z Score values are as follows: -----R Neck: -1.4 -----L Neck: -1.1 -----R Total: -0.9 -----L Total: -0.6 Bone mineral density baseline FRAX%s: The graph provided illustrates a 12.1% chance for a major osteoporotic fx and a 2.4% chance f or the hips probability for fx in 10 years time. IMPRESSION: Osteopenia (T Score between -2.5 and -1). There is slightly increased risk of fracture and the patient may be considered for treatment. Re-Screen 2-5 years. NOTE: T-SCORE=SD OF THE YOUNG ADULT MEAN.
== END | disposition home or self-care (01) ==
LOC: RADBDWWP 09:04
PROVIDERS: ATTEND Family Medicine
DX: M85.89 Other specified disorders of bone density and structure, multiple sites (principal); Z78.0 Asymptomatic menopausal state
CPT/HCPCS: 77080